=== PATIENT | female | born 1975 | race Caucasian/White ===

== ENCOUNTER 2024-10-07 14:23 | Emergency (ER) | payer OTHER ==
[~2024-10-07] VITALS: Ht 167.6 cm; Wt 50.2 kg
[2024-10-07 14:27] VITALS: BP 127/88; PULSE 69; O2SAT 99
--- NOTE | 2024-10-07 15:43 | Physician Documentation ---
History of Present Illness ~ Chief Complaint: Rash Stated Complaint: FACIAL RASH Time Seen by MD: 15:10 HPI This is a 48-year-old female who presents with 10 days of rash to her upper lip and left neck following gardening in her home garden, patient describes rash as itchy. Patient reports no new soaps, make ups, or medications. Patient reports no history of known allergen and reports no other possible allergen exposure other than gardening. Patient reports no other acute symptoms or concerns. Medication Reconciliation Allergies: Coded Allergies: No Known Allergies (Unverified , 10/07/24) Scheduled Loratadine (Loratadine), 1 TAB PO DAILY Triamcinolone Acetonide 0.1% Crm* (Kenalog 0.1% Crm*), 1 APPLIC TOP Q12H Past Medical History Past Medical History: No Pertinent History Review of Systems ROS Rash to neck and upper lip as stated above in the HPI, otherwise all systems are reviewed and negative. Physical Exam Vital Signs: Temperature: 98.5, Source: Temporal, Heart Rate: 69, Respiratory Rate: 15, BP: 127/88, Pulse Oximetry: 99, Weight: 50.230 Physical Exam VITALS: Reviewed and as above. GENERAL: Alert, nontoxic appearing, no apparent distress. RESPIRATORY: No increased work of breathing, no respiratory distress, speaking in full clear sentences SKIN: Erythematous papular rash to left neck and upper lip without edema or airway involvement Progress Results/Orders Results/Orders Vital Signs 10/07/24 10/07/24 14:27 15:54 Temp 98.5 98.5 Pulse 69 Resp 15 17 B/P (MAP) 127/88 Pulse Ox 99 Medical Decision Making Findings This 48-year-old female presented with rash to her upper lip and left neck onset after working in her garden, patient had no other known allergy exposures and based on physical exam this appears to be contact dermatitis. It is reassuring patient reported no fever or systemic symptoms. Additionally rash to the upper lip did not cause swelling of the upper lip and there was no airway involvement. There is no evidence of rapidly progressing symptoms, crepitus, pain out of proportion, pain away from site or other signs/symptoms concerning for necroti zing fasciitis or myositis. No mucosal involvement, blisters or bullae, sloughing skin, or appearance concerning for SJS, TEN, SSSS, pemphigus vulgaris, or bullous pemphigoid. No airway compromise, angioedema or systemic signs/symptoms concerning for anaph ylaxis. Remainder of physical exam benign and the patient is well-appearing and is hemodynamically stable. Patient to be treated with topical steroid. Patient given strict return precautions including rapidly progressing symptoms, pain out of proportion/ severe pain, mucosal involvement, and/or fever>100.4. Patient verbalized understanding of home care and return to care precautions. Differential Dx:Considerations: Include: Atopic dermatitis, Drug reaction, Erysipelas, Herpes zoster, Herpes simplex, Pediculosis, Pityriasis rosea, Psoriaisis, Viral exanthema Departure Disposition: HOME / SELF CARE / HOMELESS Impression: Primary Impression: Allergic contact dermatitis Qualified Codes: L23.9 - Allergic contact dermatitis, unspecified cause Condition: Improved Discharge Instructions: Contact Dermatitis Additional Instructions: Use the prescribed cream on the affected area until the rash resolves for up to two weeks, you may also use the prescribed antihistamine medications which may help with your symptoms. Please follow up with your primary care provider in the next few days. Please return to the emergency department for any new or worsening concerning symptoms including but not limited to swelling that makes it difficult to breathe or eat, or if you develop a fever. Referrals: NO PRIMARY CARE PROVIDER (PCP) Prescriptions Loratadine (Loratadine) 10 Mg Tablet 1 TAB PO DAILY for allergy symptoms for 30 Days, #30 TAB 0 Refills Prov: JUAN CARLOS SHEPARD 10/07/24 Triamcinolone Acetonide 0.1% Crm* (Kenalog 0.1% Crm*) 1 Applic Tube 1 APPLIC TOP Q12H for 14 Days, #80 GM Prov: JUAN CARLOS SHEPARD 10/07/24 Education Educated: Patient Educated regarding: diagnosis, treatment, prognosis, need for follow up Signature Scribe Signature: No scribe Attestation: The note accurately reflects work and decisions made by me.[email or web address] Santacruz 10/08/24 01:59 JUAN CARLOS SHEPARD October 07, 2024 15:43
[2024-10-07] MEDS ORDERED: KEN0.1O TOP (15:45)
[2024-10-07] MEDS ORDERED: LORA10TA7 PO (15:45)
[2024-10-07 15:54] VITALS: RESP 17; TEMP 98.5
== END 2024-10-07 15:58 | disposition home or self-care (01) ==
LOC: ER 14:25
DX: L23.9 Allergic contact dermatitis, unspecified cause (principal)
CPT/HCPCS: 99283